=== PATIENT | female | born 1955 | race Caucasian/White ===

== ENCOUNTER → 2022-06-27 11:08 | Outpatient (CLI) | payer MEDICARE, BC, SELFPAY ==
[2022-06-27 19:02] LABS: Add Manual Diff / Slide Review NO; Basophils Absolute Auto 0 /uL (0-100); Eosinophils Absolute Auto 400 /uL (0-450); Eosinophils Percent Auto 7.2 % (2-4); Hematocrit 41.8 % (36-46); Hemoglobin 13.9 g/dL (12.0-16.0); Lymphocytes Absolute Auto 2000 /uL (1100-4500); Mean Corpuscular HGB Conc 33.2 % (30-36); Mean Corpuscular Volume 93.5 fL (80-100); Monocytes Absolute Auto 400 /uL (0-900); Monocytes Percent Auto 8.1 % (3-14); Neutrophils Absolute Auto 2200 /uL (1500-7000); Neutrophils Percent Auto 43.7 % (50-75); Platelet Count 272 X10^3/uL (150-400); Red Blood Cell Count 4.47 X10^6/uL (4.0-5.2); Red Cell Distribution Width 12.9 % (11.6-14.8)
[2022-06-27 19:16] LABS: Alanine Aminotransferase 26 IU/L (<35); Albumin 4.2 g/dL (3.5-5.0); Albumin Globulin Ratio 1.3 (1.0-2.8); Alkaline Phosphatase 83 U/L (38-126); Aspartate Aminotransferase 29 IU/L (14-36); BUN Creatinine Ratio 15.9 (6-22); Blood Urea Nitrogen 13 mg/dL (7-17); Calcium 9.7 mg/dL (8.4-10.2); Carbon Dioxide 30 mmol/L (22-32); Chloride 101 mmol/L (98-107); Cholesterol 255 mg/dL (140-199); Estimated Glomerular Filt Rate > 60 mL/min (>60); Globulin 3.2 g/dL (1.7-4.1); Glucose 101 mg/dL (80-110); HDL Cholesterol 92 mg/dL (40-60); HEMOLYSIS < 15 (0-50); LDL Cholesterol Calculated 130 mg/dL (<100); Potassium 4.3 mmol/L (3.4-5.1); Sodium 138 mmol/L (137-145); Total Protein 7.4 g/dL (6.3-8.2); Triglycerides 163 mg/dL (35-150)
[2022-06-27 19:47] LABS: TSH w/ Reflex to FT4 2.91 uIU/mL (0.47-4.68)
== END ==
PROVIDERS: PCP Physician Assistant; Visit Provider Physician Assistant
DX: Z01.419 Encounter for gynecological examination (general) (routine) without abnormal findings (principal); R63.5 Abnormal weight gain; E78.00 Pure hypercholesterolemia, unspecified; R21 Rash and other nonspecific skin eruption; Z79.899 Other long term (current) drug therapy
CPT/HCPCS: 80053; 80061; 84443; 85025

== ENCOUNTER 2022-08-05 10:19 | Day surgery (SDC) | payer MEDICARE, BC, SELFPAY ==
--- NOTE | 2022-08-05 | PATH_ITS ---
[facility] Accession Number: [id number] No. of containers..02 Tissue . 01 Material submitted: . PART A: colon - CECAL POLYP PART B: colon - DESCENDING POLYP . 01 Diagnosis: A. Cecal Polyp, Biopsy: Tubular adenoma. Additional colonic mucosa with benign lymphoid aggregate. . B. Decending Colon Polyp, Biopsy: Colonic mucosa with benign lymphoid aggregates. [facility] 08/09/2022 1046 Local . 01 Electronically signed: . Bree Ackerman MD, Pathologist NPI- [id number] . 01 Gross description: . Part A: CECAL POLYP: Received in formalin are multiple fragment(s) of vo, soft tissue measuring 0.1 x 0.1 x 0.1 cm to 0.3 x 0.2 x 0.2 cm submitted entirely in 1 cassette(s) Part B: DESCENDING POLYP: Received in formalin are 2 fragment(s) of vo, soft tissue measuring 0.1 x 0.1 x 0.1 cm to 0.3 x 0.2 x 0.2 cm submitted entirely in 1 cassette(s) /RANDY 08/08/20222020 Local . 01 Pathologist provided ICD-10: D12.0, K63.89 . 01 CPT . 112832, 525774 Specimen Comment: A courtesy copy of this report has been sent to Pathology Performed at: 01 [facility] [address] [place] [address] [address], [place], [place] [id number] MD Reg Head MD Phone: [phone]
[2022-08-05 11:02] VITALS: BP 150/82; PULSE 69; RESP 16; TEMP 36.2; O2SAT 99
[2022-08-05] MEDS: LACTATED RINGERS 1,000 ML 120 ML IV (11:06)
--- NOTE | 2022-08-05 11:36 | SUR.PREOP ---
1125 - PT BEGINS TO COUGH, STATING THOAT FEELS WEIRD AND FEELS SHORT OF BREATH. LUNGS CTA, NO WHEEZING. STATES HAS HX OF ASTHMA BUT HASN'T USED AN INHALER IN 10 YEARS. aNESTHESIA
--- NOTE | 2022-08-05 11:41 | SUR.PREOP ---
PT C/O SHORTNESS AND WHEEZING IN THROAT. PT BEGINS TO COUGH REPEATEDLY. ANESTHESIA NOTIFIED AND IS AT BEDSIDE TO EXAMIN PT. VSS. LUNGS CTA. DUONEB ORDERED.
--- NOTE | 2022-08-05 12:48 | P.HP_ITS ---
History of Present Illness History of Present Illness Date Patient Seen: 08/05/22 Chief complaint: Dx Colonoscopy Narrative: Please refer to H& P dated 06/28/2022. Patient was seen in my office prior to colonoscopy scheduling. She states there is not been changes in her history. She continues to report some difficulty with smaller caliber bowel movements and had some bright red bleeding as well. She has no family history of colon cancer and has had a colonoscopy in the past: it has been 10-20 while years but she does not recall having had any polyps at that time. Patient History Medical History Acne (~1970) Allergies (~1956) Anemia (~1972) Ankle pain (~1999) Asthma (~1954) Chicken pox (~1961) Foot pain (~1999) Fractures (~1972) Gastric ulcer (~1969) Hearing loss Hemorrhoid (~1998) Measles (~1962) Menopause (~1996) Mumps (~1963) Osteoarthritis (~2014) Plantar warts (~1969) Rosacea (~2011) Wears contact lenses Surgical History Anesthesia Fx wrist (~1972) History of arteriovenous graft History of section [place] teeth removed (~1974) Family & Social History Family History Father History of heart disease Mother Cancer Tobacco & Substance use: Smoking Status Never smoker Meds Home Medications and Allergies Allergies Allergy/AdvReac Type Severity Reaction Status Date / Time peanut Allergy Severe Anaphylaxis Verified 08/05/22 10:37 Penicillins Allergy Severe Rash Verified 08/05/22 10:37 Exam Vital Signs (past 8 hours): - 08/05/22 11:02 Temperature 97.2 F L Pulse Rate 69 Respiratory Rate 16 Blood Pressure 150/82 H Pulse Oximetry 99 Oxygen Delivery Method Room Air Oxygen Delivery Method Room Air Const General: cooperative, healthy appearing and comfortable HENMT Head: normal to inspection Eyes General: appearance normal, both eyes and all related structures Resp Effort & Inspection: normal respiratory effort and able to speak in complete sentences GI Palpation: soft and No tender Assessment & Plan Assessment and plan (1) Screening for colon cancer: Status: Acute (2) Bleeding per rectum: Status: Acute (3) Bowel habit changes: Status: Acute Assessment & Plan narrative: I reiterated the risks benefits and alternatives that were discussed in the office. Ms. Collazo had no questions or concerns and understands the risk of perforation and incomplete exam well as the benefits and alternatives and would like to proceed.
[2022-08-05 13:36] VITALS: BP 110/73; PULSE 68; RESP 21; TEMP 36.4; O2SAT 98
[2022-08-05 13:41] VITALS: BP 100/72; PULSE 70; RESP 22; O2SAT 99
[2022-08-05 13:44] VITALS: BP 119/78; PULSE 71; RESP 20; O2SAT 98
--- NOTE | 2022-08-14 19:02 | PM.OP.COLON ---
Operative Date/Time/Diagnoses Date of procedure: 08/05/22 Procedure & Clinicians Study performed: Colonoscopy and biopsy Indications: Small caliber stools and colon cancer screening Surgeon: Jackie Bonilla Procedure Notes Procedure in detail: Patient was taken to the endoscopy suite and placed in a left lateral decubitus position. With the help of anesthesiologist conscious sedation was induced and maintained throughout the case. A time-out was performed. Digital rectal exam revealed no masses or strictures. The colonoscope was introduced into the anal canal and advanced through into the cecum. A photograph was obtained. The bowel prep was good [place] bowel prep score of 2. The scope was then withdrawn for a period of greater than 10 minutes. A approximately 0.9 mm cecal polyp was identified and removed using biopsy forceps. This was sent for pathology. Upon withdrawal another small descending colon polyp was seen and removed with the biopsy forceps. There were multiple large diverticula throughout the sigmoid colon. Patient tolerated the procedure well and went in good condition to the postoperative care unit Specimen(s): other (1. Cecal polyp 2. Descending colon polyp) Impression: You had two polyps. Biopsy results will be available in 7-10 days and and you will receive a letter about the pathology. You also had lots of diverticula and I recommend a powdered fiber supplement twice daily. Please call the office with questions or concerns Post-procedure Plan for aftercare: Colonoscopy in 7 years, start fiber supplementation daily to prevent any issues with diverticula.
== END 2022-08-05 14:05 | disposition home or self-care (01) ==
PROVIDERS: PCP Physician Assistant; Referring Provider Surgery; Visit Provider Surgery
PROC: 0DJD8ZZ Inspection of Lower Intestinal Tract, Via Natural or Artificial Opening Endoscopic (ICD-10-PCS; CPT 45378; principal; 2022-08-05 11:30)
DX: K62.5 Hemorrhage of anus and rectum (principal); R19.4 Change in bowel habit; K57.30 Diverticulosis of large intestine without perforation or abscess without bleeding; D12.0 Benign neoplasm of cecum
CPT/HCPCS: 45380; J2704

== ENCOUNTER → 2022-08-09 13:19 | Outpatient (CLI) | payer MEDICARE, BC, SELFPAY ==
--- NOTE | 2022-08-09 | DI.US.S_ITS ---
LIMITED ULTRASOUND OF LEFT BREAST: 08/09/2022 CLINICAL: Inverted left nipple. Comparison is made to exams dated: 08/09/2022 mammogram - [facility] and 02/04/2020 mammogram - outside location. Color flow and real-time ultrasound of the left breast retroareolar were performed. Ramirez scale images of the real-time examination were reviewed. No retroareolar mass. IMPRESSION: NEGATIVE There is no sonographic evidence of malignancy. No retroareolar mass. A 1 year screening mammogram is recommended. Exam findings were discussed with the patient. Patient is advised to monitor for significant change. Clinical follow-up as needed. This exam was interpreted at Station ID: [id number]. Electronically Signed By: Rubén Yost M.D. slc/:08/09/2022 14:38:29 letter sent: Normal Exam Ultrasound BI-RADS: 1 Negative
--- NOTE | 2022-08-09 13:21 | DI.US.S_ITS ---
LIMITED ULTRASOUND OF RIGHT BREAST: 08/09/2022 CLINICAL: Palpable right breast lump and inverted nipple. Comparison is made to exams dated: 02/04/2020 mammogram - outside location, 08/09/2022 mammogram, and 08/09/2022 ultrasound - [facility]. Color flow and real-time ultrasound of the right breast 8 o'clock, and retroareolar regions were performed. Ramirez scale images of the real-time examination were reviewed. No significant abnormalities were seen sonographically in the right breast. No retroareolar mass. Palpable abnormality at 8:00 8 cm from the nipple corresponds to a implant fold. IMPRESSION: BENIGN There is no sonographic evidence of malignancy. Palpable abnormality corresponds to breast implant fold. Breast implant MRI could be considered to evaluate implant integrity if clinically indicated. No retroareolar mass. Patient reports bilateral nipple changes. Exam findings were conveyed to the patient. Patient is advised to monitor for significant change. Clinical follow-up as needed. A 1 year screening mammogram is recommended. This exam was interpreted at Station ID: [id number]. Electronically Signed By: Rubén Yost M.D. [facility]/:08/09/2022 14:33:29 letter sent: Normal Exam Ultrasound BI-RADS: 2 Benign
--- NOTE | 2022-08-09 13:21 | DI.MG.S_ITS ---
BILATERAL DIGITAL DIAGNOSTIC MAMMOGRAM 3D/2D WITH AUGMENTATION: 08/09/2022 CLINICAL: Baseline. Right breast lump. Comparison is made to exam dated: 02/04/2020 mammogram - outside location. Both breasts are heterogeneously dense, which may obscure small masses (category c / 51-75% glandular tissue). Bilateral silicone implants are stable. No significant masses, calcifications, or other findings are seen in either breast. IMPRESSION: INCOMPLETE: NEEDS ADDITIONAL IMAGING EVALUATION No mammographic evidence of malignancy. A targeted ultrasound is recommended and will immediately follow. Based on the Tyrer Cuzick model (a risk assessment model) the patient's lifetime risk is 9.9% and her 10 year risk is 5.2%. According to the ACR, ACS, and NCCN guidelines, an annual breast MRI exam along with mammogram is recommended if the patient's lifetime risk is 20% or greater. This exam was interpreted at Station ID: [id number]. NOTE: For mammograms, a report in lay terms will be sent to the patient. Approximately 15% of breast malignancies will not be visualized mammographically. In the management of a palpable breast mass, a negative mammogram must not discourage biopsy of a clinically suspicious lesion. Electronically Signed By: Rbuén Yost M.D. slc/:08/09/2022 14:13:52 ACR BI-RADS Category 0: Incomplete [id number]
== END ==
PROVIDERS: PCP Physician Assistant; Referring Provider Physician Assistant; Visit Provider Physician Assistant
DX: Z98.82 Breast implant status; N63.10 Unspecified lump in the right breast, unspecified quadrant; R92.2 Inconclusive mammogram
CPT/HCPCS: 76642; 77066; G0279

== ENCOUNTER → 2022-12-28 13:02 | Outpatient (CLI) | payer MEDICARE, BC, SELFPAY ==
--- NOTE | 2022-12-28 13:04 | DI.US.S_ITS ---
PROCEDURE: US PELVIC COMPLETE INDICATIONS: pelvic pain and pressure TECHNIQUE: Real-time scanning was performed of the pelvic organs, with image documentation. Additional endovaginal scanning was necessary due to incomplete visualization of the adnexal and endometrial structures by transabdominal scanning. COMPARISON: None. FINDINGS: Uterus: Uterus is retroverted and normal in size at 5.8 x 4.3 x 4.1 cm. The myometrium is heterogenous. The endometrium measures 8.8 mm combined thickness. Ovaries: The right ovary measures 2.1 x 0.7 x 0.8 cm, with a calculated ovarian volume of 0.6 cc. The left ovary measures 1.4 x 2.2 x 1.0 cm, with a calculated ovarian volume of 1.6 cc. The ovaries have a normal sonographic appearance. <<Less than 12 follicles can be seen in each ovary. Adjacent to the left ovary, there is a ill-defined 1.4 x 1.7 cm hypoechoic homogeneous focus. By location, is not well visualized Other: No pathologic free abdominal or pelvic fluid. IMPRESSION: Slightly thickened endometrium measures 8.8 mm. Endometrial biopsy could be considered in the proper clinical setting. Ill-defined hypoechoic area in the left adnexa is of indeterminate etiology. Consider 3-6 month follow-up or MR pelvis to further assess Approved by: Martin Martines M.D. on 12/28/2022 at 19:30
--- NOTE | 2022-12-28 13:05 | DI.RAD.S_ITS ---
PROCEDURE: XR LUMBAR SPINE MIN 4V INDICATIONS: low back and hip pain TECHNIQUE: 5 views of the lumbar spine were acquired, including bilateral oblique views. COMPARISON: None. FINDINGS: Bones: 5 nonrib-bearing vertebrae are present. Grade 1 retrolisthesis of L2 on L3. Severe disc height loss at L2-3. Moderate disc height loss at remaining levels. Facet arthrosis L4 through S1. Soft tissues: Overlying bowel gas pattern is normal. No suspicious soft tissue calcifications. Oblique images: No pars defects. IMPRESSION: Multilevel degenerative disc disease and facet arthrosis, most prominent at L2-3. Dictated by: Dedrick Eastman M.D. on 12/28/2022 at 15:39 Approved by: Dedrick Eastman M.D. on 12/28/2022 at 15:40
--- NOTE | 2022-12-28 13:05 | DI.RAD.S_ITS ---
PROCEDURE: XR HIP W PEL IF DONE DANETTE MIN 4V INDICATIONS: low back and hip pain TECHNIQUE: AP pelvis with lateral view(s) of both hip(s). COMPARISON: [facility], , XR LUMBAR SPINE MIN 4V, 12/28/2022, 13:28. FINDINGS: Bones: No fractures or dislocations. Pelvic ring appears intact. No suspicious bony lesions. Mild osteoarthritic changes in hips and sacroiliac joints bilaterally. Soft tissues: The visualized bowel gas pattern is normal. No suspicious soft tissue calcifications. IMPRESSION: Mild osteoarthrosis. Dictated by: Jesus Chaidez M.D. on 12/28/2022 at 15:44 Approved by: Jesus Chaidez M.D. on 12/28/2022 at 15:45
== END ==
PROVIDERS: PCP Physician Assistant; Referring Provider Physician Assistant; Visit Provider Physician Assistant
DX: M16.0 Bilateral primary osteoarthritis of hip (principal); M51.36 Other intervertebral disc degeneration, lumbar region; M47.816 Spondylosis without myelopathy or radiculopathy, lumbar region; M47.817 Spondylosis without myelopathy or radiculopathy, lumbosacral region; R10.2 Pelvic and perineal pain; M25.551 Pain in right hip; M25.552 Pain in left hip; M54.50 Low back pain, unspecified
CPT/HCPCS: 72110; 73522; 76856

== ENCOUNTER → 2023-05-01 12:07 | Outpatient (CLI) | payer MEDICARE, BC, SELFPAY ==
--- NOTE | 2023-05-01 12:08 | DI.US.S_ITS ---
PROCEDURE: US PELVIC COMPLETE INDICATIONS: F/U endometrial thickening and hypoechoic left adnexa area TECHNIQUE: Real-time scanning was performed of the pelvic organs, with image documentation. Additional endovaginal scanning was necessary due to incomplete visualization of the adnexal and endometrial structures by transabdominal scanning. COMPARISON: [facility], US, US PELVIC COMPLETE, 12/28/2022, 15:40. FINDINGS: Uterus: Uterus is anteverted and normal in size at 6.8 x 3.0 x 4.5 cm. The myometrium is homogeneous. The endometrium measures 7 mm combined thickness. Ovaries: The right ovary measures 1.6 x 0.6 x 1.6 cm, with a calculated ovarian volume of 0.5 cc. The left ovary measures 1.3 x 0.9 x 1.5 cm, with a calculated ovarian volume of 0.9 cc. The ovaries have a normal sonographic appearance. Resolved left ovarian hypoechoic lesion. No adnexal masses are seen. Other: No pathologic free abdominal or pelvic fluid. IMPRESSION: Resolved left ovarian hypoechoic lesion. Endometrium measures 7 mm in combined thickness, within normal limits in the absence of postmenopausal bleeding. We strive to produce accurate, complete, and clear reports of imaging services. To assist us in improving patient care, this report was composed using standard report templates and voice recognition software. Therefore, it may contain abnormal punctuation, insertions and/or omissions. Occasional wrong-word or sound-alike substitutions may occur. Though we review the report and make efforts to correct it, we do recommend that the report be read carefully in proper context to recognize any text inaccuracies. Dictated by: Dedrick Eastman M.D. on 05/01/2023 at 15:25 Approved by: Dedrick Eastman M.D. on 05/01/2023 at 15:27
== END ==
PROVIDERS: Family Provider Physician Assistant; PCP Physician Assistant; Referring Provider Specialist; Visit Provider Specialist
DX: R93.89 Abnormal findings on diagnostic imaging of other specified body structures (principal); R19.8 Other specified symptoms and signs involving the digestive system and abdomen
CPT/HCPCS: 76830; 76856

== ENCOUNTER → 2023-06-08 12:30 | Outpatient (CLI) | payer MEDICARE, BC, SELFPAY ==
--- NOTE | 2023-06-08 12:31 | DI.RAD.S_ITS ---
PROCEDURE: XR KNEE LT 3V INDICATIONS: left knee pain TECHNIQUE: 3 views of the knee were acquired. COMPARISON: None. FINDINGS: Bones: No fractures or dislocations. No suspicious bony lesions. Mild tricompartmental marginal osteophyte formation is seen with minimal joint space narrowing. Soft tissues: No joint effusion. No suspicious soft tissue calcifications. IMPRESSION: No acute osseous abnormality. Minimal osteoarthrosis. Approved by: Cristopher Noble M.D. on 06/08/2023 at 16:58
--- NOTE | 2023-06-08 12:31 | DI.MRI.S_ITS ---
PROCEDURE: MR KNEE RT WO CON INDICATIONS: Right knee pain not improving with PT. Normal xray TECHNIQUE: Noncontrast sagittal PD fast spin echo and T2 fast spin echo with fat saturation, sagittal 3-D FLASH with fat saturation; coronal T1 spin echo and PD fast spin echo with fat saturation, and axial PD fast spin echo with fat saturation through the knee. COMPARISON: [facility], CR, XR KNEE LT 3V, 06/08/2023, 12:34. FINDINGS: Image quality: Excellent. Anterior cruciate ligament: Intact. Posterior cruciate ligament: Intact. Medial collateral ligament: Mild edema surrounding the proximal medial collateral ligament is compatible with a low-grade sprain. Lateral collateral ligament: Intact. Medial meniscus: There is partial radial tearing of the posterior horn of the medial meniscus with mild extrusion of the meniscal body beyond the femorotibial joint line. Lateral meniscus: There is horizontal oblique tearing of the lateral meniscus at the junction of the anterior horn and body extending to the middle third of the femoral articular surface. Medial and lateral tendons: The semimembranosus tendon insertions appear intact. Visualized portions of the pes anserinus tendons appear normal. The popliteus tendon is intact. Iliotibial band appears normal. Anterior structures: The quadriceps and patellar tendons appear intact. No patellar subluxation. No femoral trochlear dysplasia or ventral trochlear prominence. No edema in the infrapatellar fat pad. Bones and cartilage: No bone marrow contusions or fractures. Medial femorotibial cartilage: Mild partial thickness cartilage thinning is seen throughout the weight-bearing portion of the medial femorotibial compartment. Lateral femorotibial cartilage: Focal high-grade cartilage irregularity in the central portion of the lateral tibial plateau with focal subchondral edema. Patellofemoral cartilage: The cartilage fissuring is seen in the medial patellar facet. There is partial thickness cartilage thinning and subchondral cystic changes of the median ridge of the patella. High-grade cartilage loss is seen at the trochlear groove. Soft tissues: There is a small joint effusion. Small medial popliteal cyst. The musculature surrounding the knee is normal in bulk. IMPRESSION: 1. Partial radial tearing of the posterior horn of the medial meniscus with mild extrusion of the meniscal body beyond the femorotibial joint line. 2. Horizontal oblique tearing of the lateral meniscus at the junction of the anterior horn and body extending to the middle third of the femoral articular surface. 3. Grade 1 sprain of the proximal medial collateral ligament. 4. Focal grade 3 chondromalacia in the lateral femorotibial compartment with focal subchondral edema. Grade 2 and grade 3 chondromalacia is seen in the patellofemoral compartment. There is mild grade 2 cartilage thinning in the medial femorotibial compartment. 5. Small joint effusion. Small medial popliteal cyst. Approved by: Cristopher Noble M.D. on 06/09/2023 at 9:21
== END ==
LOC: MRI 12:30
PROVIDERS: Family Provider Physician Assistant; PCP Physician Assistant; Referring Provider Physician Assistant; Visit Provider Physician Assistant
DX: S83.281A Other tear of lateral meniscus, current injury, right knee, initial encounter (principal); S83.411A Sprain of medial collateral ligament of right knee, initial encounter; S83.241A Other tear of medial meniscus, current injury, right knee, initial encounter; M22.41 Chondromalacia patellae, right knee; M25.461 Effusion, right knee; M71.21 Synovial cyst of popliteal space [Baker], right knee; M25.561 Pain in right knee; M25.562 Pain in left knee
CPT/HCPCS: 73562; 73721

== ENCOUNTER → 2023-06-26 09:47 | Outpatient (CLI) | payer MEDICARE, BC, SELFPAY ==
[2023-06-26 18:42] LABS: Add Manual Diff / Slide Review NO; Basophils Absolute Auto 0 /uL (0-100); Basophils Percent Auto 0.5 % (0-2); Eosinophils Absolute Auto 300 /uL (0-450); Eosinophils Percent Auto 7.2 % (2-4); Hematocrit 40.6 % (36-46); Hemoglobin 13.8 g/dL (12.0-16.0); Lymphocytes Absolute Auto 1500 /uL (1100-4500); Lymphocytes Percent Auto 35.7 % (25-40); Mean Corpuscular Hemoglobin 31.7 PG (26-34); Mean Corpuscular Volume 93.4 fL (80-100); Monocytes Absolute Auto 300 /uL (0-900); Monocytes Percent Auto 8.1 % (3-14); Neutrophils Absolute Auto 2000 /uL (1500-7000); Neutrophils Percent Auto 48.5 % (50-75); Platelet Count 289 X10^3/uL (150-400); Red Blood Cell Count 4.34 X10^6/uL (4.0-5.2); Red Cell Distribution Width 13.3 % (11.6-14.8); White Blood Cell Count 4.1 X10^3/uL (4.5-11.0)
[2023-06-26 18:56] LABS: Alanine Aminotransferase 17 IU/L (<35); Albumin 4.3 g/dL (3.5-5.0); Albumin Globulin Ratio 1.2 (1.0-2.8); Alkaline Phosphatase 71 U/L (38-126); Aspartate Aminotransferase 30 IU/L (14-36); BUN Creatinine Ratio 19.5 (6-22); Bilirubin Total 0.8 mg/dL (0.2-1.3); Blood Urea Nitrogen 16 mg/dL (7-17); Calcium 9.5 mg/dL (8.4-10.2); Carbon Dioxide 24 mmol/L (22-32); Chloride 103 mmol/L (98-107); Cholesterol 265 mg/dL (140-199); Estimated Glomerular Filt Rate > 60 mL/min (>60); Globulin 3.5 g/dL (1.7-4.1); Glucose 105 mg/dL (80-110); HDL Cholesterol 93 mg/dL (40-60); HEMOLYSIS 19 (0-50); LDL Cholesterol Calculated 137 mg/dL (<100); Potassium 4.4 mmol/L (3.4-5.1); Sodium 138 mmol/L (137-145); Total Protein 7.8 g/dL (6.3-8.2); Triglycerides 174 mg/dL (35-150)
[2023-06-26 19:21] LABS: TSH w/ Reflex to FT4 6.21 uIU/mL (0.47-4.68)
[2023-06-26 19:55] LABS: Free T4, Direct Thyroxine 1.13 ng/dL (0.78-2.19)
== END ==
PROVIDERS: Family Provider Physician Assistant; PCP Physician Assistant; Visit Provider Physician Assistant
DX: E78.1 Pure hyperglyceridemia (principal); R10.2 Pelvic and perineal pain; R63.5 Abnormal weight gain
CPT/HCPCS: 80053; 80061; 84439; 84443; 85025

== ENCOUNTER → 2023-07-04 10:33 | Outpatient (CLI) | payer MEDICARE, BC, SELFPAY ==
--- NOTE | 2023-07-04 10:35 | DI.MRI.S_ITS ---
PROCEDURE: MR KNEE LT WO CON INDICATIONS: left knee pain TECHNIQUE: Noncontrast sagittal PD fast spin echo and T2 fast spin echo with fat saturation, sagittal 3-D FLASH with fat saturation; coronal T1 spin echo and PD fast spin echo with fat saturation, and axial PD fast spin echo with fat saturation through the knee. COMPARISON: [facility], MR, MR KNEE RT WO CON, 06/08/2023, 12:56. [facility], CR, XR KNEE LT 3V, 06/08/2023, 12:34. FINDINGS: Image quality: Diagnostic Menisci: Medial: Intact. Meniscocapusular junction maintained. Lateral: Diminutive and partially macerated anterior horn and anterior body. Cruciate ligaments: Intact Medial structures: MCL: Onnd-my-cxnmczrc periligamentous edema Pes anserine tendons: Moderate bursal edema Semimembranosus: Lhzq-dn-vhrulrsy insertional tendinopathy Lateral structures: LCL: Ubjh-gm-qormrqxa periligamentous edema Biceps femoris: Intact IT band: Intact Popliteus tendon: Mild insertional tendinopathy Anterior structures: Extensor mechanism: Intact Fat pads: Moderate prepatellar and Hoffa's fat pad edema Medial retinaculum: Intact. Trochlea: Unremarkable morphology. Bone and joint: Bones: No acute fracture. Mild diffuse osteophytes. There are ganglion cysts in the posterior central tibial plateau Cartilage: Focal subchondral edema in the lateral tibial plateau. Aola-wq-jajkluhb chondromalacia overall is seen. Nearly full-thickness cartilage loss is seen in the patellar median ridge and medial facet. Joint space: Moderate joint effusion with evidence of synovitis and debris Tobin's cyst: Xopb-it-lehdmawb Tobin's cysts, likely ruptured Soft tissues: No significant vascular or other soft tissue pathology. IMPRESSION: Diminutive and partially macerated anterior portion of the lateral meniscus. Cruciate and collateral ligaments appear intact. Sprain versus reactive edema is seen surrounding the collateral ligaments. Focal marrow edema is seen at the lateral portion of the tibial plateau, likely a nondisplaced fracture/contusion. Overall bhtr-za-eghkmmpn arthrosis. Moderate effusion with evidence of synovitis. Moderate Tobin's cyst, likely ruptured, and adjacent anserine bursitis. There is also prepatellar and Hoffa's fat pad edema. Dictated by: Brandon Mckenzie M.D. on 07/04/2023 at 14:28 Approved by: Brandon Mckenzie M.D. on 07/04/2023 at 14:35
== END ==
LOC: MRI 10:33
PROVIDERS: Family Provider Physician Assistant; PCP Physician Assistant; Referring Provider Physician Assistant; Visit Provider Physician Assistant
DX: M23.342 Other meniscus derangements, anterior horn of lateral meniscus, left knee (principal); M25.462 Effusion, left knee; M17.12 Unilateral primary osteoarthritis, left knee; M71.22 Synovial cyst of popliteal space [Baker], left knee; M25.562 Pain in left knee
CPT/HCPCS: 73721

== ENCOUNTER → 2023-09-18 13:05 | Outpatient (CLI) | payer MEDICARE, BC, SELFPAY ==
[2023-09-18 20:08] LABS: Free T3, Triiodothyronine Free 3.88 pg/mL (2.77-5.27)
[2023-09-18 20:22] LABS: TSH w/ Reflex to FT4 2.47 uIU/mL (0.47-4.68)
[2023-09-18 20:55] LABS: Hep C Virus Ab w/Reflex Quant NEGATIVE s/c (NEGATIVE)
== END ==
PROVIDERS: Family Provider Physician Assistant; PCP Physician Assistant; Visit Provider Physician Assistant
DX: Z12.11 Encounter for screening for malignant neoplasm of colon (principal); E03.9 Hypothyroidism, unspecified; Z11.59 Encounter for screening for other viral diseases
CPT/HCPCS: 84443; 84481; 86803

== ENCOUNTER → 2023-09-20 14:31 | Outpatient (CLI) | payer MEDICARE, BC, SELFPAY ==
--- NOTE | 2023-09-20 14:33 | DI.MRI.S_ITS ---
PROCEDURE: MR LUMBAR SPINE WO CON INDICATIONS: Worsening right-sided sciatica TECHNIQUE: Noncontrast sagittal T1 spin echo and T2 fast echo, sagittal STIR, and T2 fast spin echo through the lumbar spine. In cases with scoliosis, additional coronal T2 fast spin echo may be performed. COMPARISON: [facility], CR, XR LUMBAR SPINE MIN 4V, 12/28/2022, 13:28. FINDINGS: Image quality: This examination is limited by involuntary motion artifact. Alignment and Curvature: S-shaped scoliotic curvature is seen. There is minimal retrolisthesis at L1-L2, with mild retrolisthesis at L2-L3. Minimal retrolisthesis is seen at L3-L4. There is mild grade 1 anterolisthesis at L5-S1. No associated pars defects are seen. Bone Marrow: Marrow is of normal overall signal. No acute vertebral body compression fractures. Spinal Cord: Conus medullaris terminates at the L1 level. Visualized cord demonstrates normal signal and size. Paraspinous Soft Tissues: No paravertebral masses. T12-L1: Mild loss of disc height is seen. Loss of disc signal is seen. There is minimal disc bulge seen, with a mild central/right disc protrusion. No neural foraminal narrowing is seen. No significant central canal narrowing is seen. L1-L2: Moderate loss of disc height is seen. Loss of disc signal is seen. Mild generalized disc bulge is seen. There is a superimposed central disc protrusion. No significant neural foraminal or central canal narrowing can be seen. L2-L3: There is at least moderate loss of disc height and disc signal seen. Reactive marrow endplate changes are seen, which demonstrate mixed T1 weighted and T2-weighted signal, and are attributed to a combination of edema and fatty metaplasia (Modic type I and Modic type II changes). There is a remote Schmorl's node seen along the inferior aspect of the L2 vertebral body, as on series 5, image 8. Moderate disc bulge is seen, with a central disc osteophyte protrusion. Mild facet joint hypertrophy is seen. Moderate bilateral neural foraminal narrowing is seen. Moderate central canal narrowing is seen. L3-L4: The disc height is well-preserved. Loss of disc signal is seen at this level. Reactive marrow endplate changes are seen which are hypointense on T1-weighted imaging and hyperintense on T2 weighted imaging, which is most consistent with edema (Modic type I changes). Moderate disc bulge is seen, with a superimposed central disc extrusion, with inferior migration of the disc material, as seen on series 5, image 9. There is a focal annular fissure seen posteriorly. There is at least moderate facet hypertrophy, right worse than left. There is moderate to severe bilateral neural foraminal narrowing seen, with an associated degree of compression seen upon the exiting nerve roots. Moderate to severe central canal narrowing is seen. L4-L5: Mild loss of disc height is seen. Loss of disc signal is seen. Mild generalized disc bulge is seen. There is a superimposed central disc protrusion. There is at least moderate right-sided and moderate left-sided facet hypertrophy. There is at least moderate right-sided neural foraminal narrowing, with a mild degree of compression upon the exiting right L4 nerve root. Moderate left-sided neural foraminal narrowing is seen. Mac row moderate sent L5-S1: The disc height is well-preserved. Loss of disc signal is seen at this level. Mild generalized disc bulge is seen. There is moderate to prominent facet hypertrophy seen, right worse than left. No significant neural foraminal or central canal narrowing can be seen. IMPRESSION: Multiple levels of significant lumbar spine degenerative change can be seen, which are overall worst at the L3-L4 level. Dictated by: Damian Galo M.D. on 09/20/2023 at 15:09 Approved by: Damian Galo M.D. on 09/20/2023 at 15:15
--- NOTE | 2023-09-20 14:33 | DI.MG.S_ITS ---
BILATERAL DIGITAL SCREENING MAMMOGRAM 3D/2D WITH CAD WITH AUGMENTATION: 09/20/2023 CLINICAL: Routine screening. Comparison is made to exams dated: 08/09/2022 mammogram - [facility] and 02/04/2020 mammogram - outside location. Both breasts are heterogeneously dense, which may obscure small masses (category c / 51-75% glandular tissue). Current study was also evaluated with a Computer Aided Detection (CAD) system. Bilateral breast implants are stable. No significant masses, calcifications, or other findings are seen in either breast. There has been no significant interval change. IMPRESSION: NEGATIVE There is no mammographic evidence of malignancy. A 1 year screening mammogram is recommended. Based on the Tyrer Cuzick model (a risk assessment model) the patient's lifetime risk is 9.3% and her 10 year risk is 5.2%. According to the ACR, ACS, and NCCN guidelines, an annual breast MRI exam along with mammogram is recommended if the patient's lifetime risk is 20% or greater. This exam was interpreted at Station ID: [id number]. NOTE: For mammograms, a report in lay terms will be sent to the patient. Approximately 15% of breast malignancies will not be visualized mammographically. In the management of a palpable breast mass, a negative mammogram must not discourage biopsy of a clinically suspicious lesion. Electronically Signed By: Cristopher [email or web address]:09/20/2023 15:42:30 letter sent: Normal Exam ACR BI-RADS Category 1: Negative 3341F
== END ==
LOC: MRI 14:32
PROVIDERS: Family Provider Physician Assistant; PCP Physician Assistant; Referring Provider Physician Assistant; Visit Provider Physician Assistant
DX: Z12.31 Encounter for screening mammogram for malignant neoplasm of breast (principal); M54.31 Sciatica, right side; R93.7 Abnormal findings on diagnostic imaging of other parts of musculoskeletal system; M51.36 Other intervertebral disc degeneration, lumbar region; M47.816 Spondylosis without myelopathy or radiculopathy, lumbar region
CPT/HCPCS: 72148; 77063; 77067

== ENCOUNTER → 2024-07-09 13:29 | Outpatient (CLI) | payer MEDICARE, BC, SELFPAY ==
[2024-07-09 20:25] LABS: BUN Creatinine Ratio 20.2 (6-22); Blood Urea Nitrogen 18 mg/dL (7-17); Calcium 9.4 mg/dL (8.4-10.2); Carbon Dioxide 24 mmol/L (22-32); Chloride 104 mmol/L (98-107); Estimated Glomerular Filt Rate > 60 mL/min (>60); Glucose 149 mg/dL (80-110); HEMOLYSIS < 15 (0-50); Magnesium 1.8 mg/dL (1.6-2.3); Potassium 4.1 mmol/L (3.4-5.1); Sodium 139 mmol/L (137-145)
[2024-07-09 20:50] LABS: Thyroid Stimulating Hormone 1.79 uIU/mL (0.47-4.68)
== END ==
PROVIDERS: Family Provider Physician Assistant; PCP Physician Assistant; Visit Provider Internal Medicine
DX: E83.42 Hypomagnesemia (principal); R00.2 Palpitations
CPT/HCPCS: 80048; 83735; 84439; 84443

== ENCOUNTER → 2025-01-23 08:30 | Outpatient (CLI) | payer MEDICARE, BC, SELFPAY | PROVIDERS: Family Provider Physician Assistant; PCP Physician Assistant; Visit Provider Physician Assistant | DX: Z12.11 Encounter for screening for malignant neoplasm of colon (principal) | CPT/HCPCS: 82274 ==

== ENCOUNTER → 2025-01-24 09:31 | Outpatient (CLI) | payer MEDICARE, BC, SELFPAY ==
[2025-01-24 18:58] LABS: Alanine Aminotransferase 17 IU/L (<35); Albumin 4.1 g/dL (3.5-5.0); Albumin Globulin Ratio 1.2 (1.0-2.8); Alkaline Phosphatase 76 U/L (38-126); Blood Urea Nitrogen 15 mg/dL (7-17); Calcium 9.4 mg/dL (8.4-10.2); Carbon Dioxide 26 mmol/L (22-32); Chloride 104 mmol/L (98-107); Cholesterol 258 mg/dL (140-199); Estimated Glomerular Filt Rate > 60 mL/min (>60); Globulin 3.3 g/dL (1.7-4.1); Glucose 100 mg/dL (70-99); HDL Cholesterol 85 mg/dL (40-60); HEMOLYSIS < 15 (0-50); Lipase 129 U/L (23-300); Potassium 4.3 mmol/L (3.4-5.1); Sodium 139 mmol/L (137-145); Total Protein 7.4 g/dL (6.3-8.2); Triglycerides 173 mg/dL (35-150)
[2025-01-24 19:12] LABS: Add Manual Diff / Slide Review NO; Hematocrit 40.4 % (36-46); Hemoglobin 13.9 g/dL (12.0-16.0); Lymphocytes Absolute Auto 1500 /uL (1100-4500); Mean Corpuscular HGB Conc 34.6 % (30-36); Mean Corpuscular Hemoglobin 31.3 PG (26-34); Mean Corpuscular Volume 90.5 fL (80-100); Platelet Count 291 X10^3/uL (150-400)
[2025-01-24 19:23] LABS: TSH w/ Reflex to FT4 3.30 uIU/mL (0.47-4.68)
== END ==
PROVIDERS: Family Provider Physician Assistant; PCP Physician Assistant; Visit Provider Physician Assistant
DX: E03.9 Hypothyroidism, unspecified (principal); Z13.6 Encounter for screening for cardiovascular disorders; Z86.2 Personal history of diseases of the blood and blood-forming organs and certain disorders involving the immune mechanism; R14.0 Abdominal distension (gaseous); R10.816 Epigastric abdominal tenderness
CPT/HCPCS: 80053; 80061; 83690; 84443; 85025